=== PATIENT | female | born 1995 | race Caucasian/White ===

== ENCOUNTER 2024-12-24 16:26 | Emergency (ER) | payer MEDICAID ==
[~2024-12-24] VITALS: Ht 160 cm; Wt 54.4 kg
[2024-12-24 16:33] VITALS: O2SAT 100
[2024-12-24 16:36] VITALS: BP 96/59; PULSE 79; RESP 16; TEMP 37.1; O2SAT 98
[2024-12-24 16:58] LABS: CLARITY URINE CLEAR (CLEAR); COLOR URINE YELLOW (YELLOW); GLUCOSE URINE NEGATIVE (NEGATIVE); KETONES URINE NEGATIVE (NEGATIVE); LEUKOCYTE ESTERASE URINE NEGATIVE (NEGATIVE); NITRITE URINE NEGATIVE (NEGATIVE); OCCULT BLOOD URINE NEGATIVE (NEGATIVE); PROTEIN URINE NEGATIVE (NEGATIVE)
[2024-12-24 17:08] LABS: BASOPHILS % 0.7 % (0.0-2.0); EOSINOPHILS % 1.4 % (0.0-5.0); HEMATOCRIT. 42.5 % (36.0-48.0); HEMOGLOBIN. 13.9 g/dL (12.0-16.0); LYMPHOCYTES % 28.4 % (20.0-50.0); MEAN CORPUSCULAR HEMOGLOBIN 26.7 pg (28.0-32.0); MEAN CORPUSCULAR HGB CONC 32.7 g/dL (31.0-37.0); MEAN CORPUSCULAR VOLUME 81.9 fL (81.0-99.0); NEUTROPHILS % 63.5 % (40.0-76.0); RED BLOOD CELL COUNT 5.18 mill/uL (4.2-5.4); RED CELL DISTRIBUTION WIDTH 13.4 % (11.6-14.6); WHITE BLOOD COUNT 8.9 x1000/uL (4.5-11.0)
[2024-12-24 17:15] LABS: CARBON DIOXIDE 25 mEq/L (21-32); CHLORIDE 107 mEq/L (98-107); POTASSIUM 3.8 mEq/L (3.5-5.1); SODIUM 142 mEq/L (136-145)
[2024-12-24 17:16] LABS: CALCIUM 9.3 mg/dL (8.7-10.4)
[2024-12-24 17:17] LABS: DIFFERENTIAL COMMENT 1
[2024-12-24 17:20] LABS: CREATININE 0.7 mg/dL (0.6-1.0); GLUCOSE 96 mg/dL (70-105)
[2024-12-24 17:21] LABS: UREA NITROGEN BLOOD 14 mg/dL (9-23)
[2024-12-24 17:22] LABS: ALANINE AMINOTRANSFERASE 9 IU/L (10-49); ALBUMIN 4.5 g/dL (3.2-4.8); ASPARTATE AMINOTRANSFERASE 16 IU/L (<34)
[2024-12-24 17:23] LABS: BILIRUBIN DIRECT 0.1 mg/dL (<=3.0); BILIRUBIN TOTAL 0.4 mg/dL (0.1-1.0); PROTEIN TOTAL 7.2 g/dL (6.0-8.3)
[2024-12-24] MEDS: ACETAMINOPHEN 325MG TABLET PO ONE (19:10)
[2024-12-24] MEDS: ONDANSETRON 4MG ODT PO ONE (19:11)
[2024-12-24 19:23] LABS: MEAN PLATELET VOLUME 10.1 fl (7.4-10.4); PLATELET 164 x1000/uL (130-400)
== END 2024-12-24 22:03 | disposition home or self-care (01) ==
LOC: ER 16:26
DX: N83.292 Other ovarian cyst, left side (principal)
CPT/HCPCS: 99284; 76830; 76856; 80076; 80048; 81003; 81025; 85025; 36415; Q0162